=== PATIENT | male | born 1980 | race Caucasian/White ===

== ENCOUNTER 2023-11-29 11:58 | Inpatient (IN) | payer MEDICAID ==
[~2023-11-29] VITALS: Ht 165.1 cm; Wt 88.9 kg
[2023-11-29 12:06] VITALS: BP 115/70; PULSE 91; RESP 16; TEMP 97.8; O2SAT 96
[2023-11-29 13:00] VITALS: O2SAT 96
[2023-11-29 13:41] LABS: BASOPHILS # (AUTO) 0.1 K/uL (0.00-0.22); BASOPHILS % (AUTO) 0.4 % (0.0-2.0); EOSINOPHILS # (AUTO) 0.3 K/uL (0-0.4); EOSINOPHILS % (AUTO) 1.3 % (0.0-4.0); HEMATOCRIT 37.7 % (36-52); HEMOGLOBIN 12.9 g/dL (12.0-18.0); LYMPHOCYTES # (AUTO) 1.3 K/uL (2.0-11.5); LYMPHOCYTES % (AUTO) 6.6 % (20.5-51.1); MEAN CORPUSCULAR HEMOGLOBIN 33 pg (27-31); MEAN CORPUSCULAR HGB CONC 34 g/dL (33-37); MEAN CORPUSCULAR VOLUME 97.6 fL (80-94); MONOCYTES # (AUTO) 0.7 K/uL (0.8-1.0); MONOCYTES % (AUTO) 3.7 % (1.7-9.3); NEUTROPHILS # (AUTO) 16.9 K/uL (1.8-7.7); PLATELET COUNT (AUTO) 271 K/uL (140-450); RED BLOOD CELL COUNT(AUTO) 3.86 MIL/uL (4.20-6.10); RED CELL DISTRIBUTION WIDTH 14.2 % (11.6-13.7); WHITE BLOOD COUNT (AUTO) 19.2 K/uL (4.8-10.8)
[2023-11-29] MEDS: NACL 0.9% 2,000 ML IV SCH (13:46)
[2023-11-29 13:54] LABS: INR 0.94 (0.8-1.2); PROTHROMBIN TIME 9.9 secs (10.8-13.4)
[2023-11-29] MEDS ORDERED: PIPERACILLIN/TAZOBACTAM 3.375 GM VIAL IV ONE (13:54)
[2023-11-29] MEDS ORDERED: VANCOMYCIN 1,000 MG VIAL ONE (13:54)
[2023-11-29 13:55] LABS: ANION GAP 13.5 (8-16); CALCIUM 9.4 mg/dL (8.5-10.1); CREATININE 0.9 mg/dL (0.6-1.3); POTASSIUM 3.5 mmol/L (3.5-5.1)
[2023-11-29 14:00] LABS: LACTIC ACID 1.2 mmol/L (0.4-2.0)
[2023-11-29 14:01] LABS: ALANINE AMINOTRANSFERASE 133 U/L (12-78); ALBUMIN 2.3 g/dL (3.4-5.0); ALKALINE PHOSPHATASE 278 U/L (50-136); ASPARTATE AMINOTRANSFERASE 106 U/L (15-37); CREATINE KINASE, TOTAL 40 U/L (39-308); LIPASE 18 U/L (16-77); TOTAL BILIRUBIN 1.6 mg/dL (0.0-1.0); TOTAL PROTEIN, SERUM 8.9 g/dL (6.4-8.2)
[2023-11-29] MEDS: PIPERACILLIN/TAZOBACTAM 3.375 GM in DEXTROSE 5% 50 ML IV ONE (14:12)
[2023-11-29] MEDS ORDERED: CLINDAMYCIN 600 MG/4 ML VIAL ONE ×2 (14:14)
[2023-11-29] MEDS: CLINDAMYCIN 600 MG in DEXTROSE 5% 50 ML IV ONE (14:16)
[2023-11-29] MEDS: VANCOMYCIN 1,000 MG in DEXTROSE 5% 250 ML IV ONE (14:27)
[2023-11-29] MEDS ORDERED: VANCOMYCIN PER PHARMACY MC PRN (14:50)
[2023-11-29] MEDS ORDERED: ZOLPIDEM 10 MG TAB PO PRN (14:55)
[2023-11-29] MEDS ORDERED: MAG SULF 2000 MG/WATER PREMIX 50 ML IV PRN (14:55)
[2023-11-29 15:17] LABS: ALCOHOL, BLOOD < 3 mg/dL (<10)
[2023-11-29 15:20] LABS: ACETAMINOPHEN < 0.5 ug/ml (10-30); SALICYLATE < 2.8 mg/dL (2.8-20.0)
[2023-11-29 15:42] LABS: APPEARANCE,URINE CLEAR (CLEAR); BILIRUBIN,URINE 1+ (NEGATIVE); BLOOD, URINE TRACE-I (NEGATIVE); COLOR,URINE YELLOW (YELLOW); LEUKOCYTE ESTERASE ,URINE NEGATIVE (NEGATIVE); NITRITE, URINE NEGATIVE (NEGATIVE); PROTEIN,URINE 2+ (NEGATIVE); UGLUCOSE NEGATIVE (NEGATIVE)
[2023-11-29] MEDS: NACL 0.9% 1,000 ML IV SCH (15:44)
[2023-11-29 15:50] LABS: BACTERIA,URINE FEW /HPF (None Seen); ICTOTEST NEGATIVE (NEGATIVE); MUCUS,URINE None Seen /LPF (None Seen); RBC,URINE 0-5 /HPF (0-5); SQUAMOUS EPITHELIAL CELL,UR 0-3 (FEW) /LPF (0-3 (FEW)); TRICHOMONAS,URINE None Seen /HPF (None Seen); WBC,URINE 0-5 /HPF (0-5); YEAST,URINE None Seen /HPF (None Seen)
[2023-11-29 15:51] LABS: FINE GRANULAR CASTS,URINE 0-10 /LPF (None Seen)
[2023-11-29 20:36] VITALS: BP 130/66; PULSE 78; RESP 18; TEMP 98.6; O2SAT 97
[2023-11-29] MEDS ORDERED: CLINDAMYCIN 600 MG/4 ML VIAL IV SCH (21:00)
[2023-11-29] MEDS: PIPERACILLIN/TAZOBACTAM 3.375 GM in DEXTROSE 5% 50 ML IV SCH (21:29)
[2023-11-29] MEDS: PIPERACILLIN/TAZOBACTAM 3.375 GM VIAL IV ONE (21:35)
[2023-11-29] MEDS: HYDROcodone/APAP 5/325 MG 1 TAB TAB PO PRN (22:01)
[2023-11-29] MEDS: CLINDAMYCIN 600 MG/4 ML VIAL ONE (22:01)
[2023-11-29] MEDS: CLINDAMYCIN 300MG/D5W PM 50 ML IV SCH (22:25)
[2023-11-29] MEDS: VANCOMYCIN 1,000 MG in DEXTROSE 5% 250 ML IV SCH (23:39)
[2023-11-29] MEDS: VANCOMYCIN 1,000 MG VIAL ONE (23:40)
[2023-11-30 04:00] VITALS: BP 100/61; PULSE 77; RESP 18; TEMP 98.5; O2SAT 96
[2023-11-30] MEDS: CLINDAMYCIN 600 MG/4 ML VIAL ONE (05:22)
[2023-11-30 06:12] LABS: BASOPHILS # (AUTO) 0.1 K/uL (0.00-0.22); BASOPHILS % (AUTO) 0.4 % (0.0-2.0); EOSINOPHILS # (AUTO) 0.3 K/uL (0-0.4); EOSINOPHILS % (AUTO) 2.1 % (0.0-4.0); HEMATOCRIT 36.3 % (36-52); HEMOGLOBIN 12.3 g/dL (12.0-18.0); LYMPHOCYTES # (AUTO) 1.4 K/uL (2.0-11.5); LYMPHOCYTES % (AUTO) 9.2 % (20.5-51.1); MEAN CORPUSCULAR HEMOGLOBIN 33 pg (27-31); MEAN CORPUSCULAR HGB CONC 34 g/dL (33-37); MEAN CORPUSCULAR VOLUME 98.9 fL (80-94); MONOCYTES # (AUTO) 0.8 K/uL (0.8-1.0); MONOCYTES % (AUTO) 5.5 % (1.7-9.3); NEUTROPHILS # (AUTO) 12.3 K/uL (1.8-7.7); NEUTROPHILS % (AUTO) 82.8 % (42.2-75.2); PLATELET COUNT (AUTO) 261 K/uL (140-450); RED BLOOD CELL COUNT(AUTO) 3.67 MIL/uL (4.20-6.10); RED CELL DISTRIBUTION WIDTH 14.4 % (11.6-13.7); WHITE BLOOD COUNT (AUTO) 14.9 K/uL (4.8-10.8)
[2023-11-30] MEDS: PIPERACILLIN/TAZOBACTAM 3.375 GM VIAL IV ONE (06:22)
[2023-11-30 06:33] LABS: ANION GAP 11.6 (8-16); CALCIUM 8.9 mg/dL (8.5-10.1); CREATININE 0.9 mg/dL (0.6-1.3); POTASSIUM 3.6 mmol/L (3.5-5.1); TOTAL BILIRUBIN 1.2 mg/dL (0.0-1.0); TOTAL PROTEIN, SERUM 8.2 g/dL (6.4-8.2)
[2023-11-30] MEDS: VANCOMYCIN 1,000 MG VIAL ONE (07:17)
[2023-11-30 08:00] VITALS: BP 147/87; PULSE 80; RESP 18; TEMP 97.2; O2SAT 99
[2023-11-30] MEDS ORDERED: SEVOFLURANE 250 ML BTL INH ONE (10:00)
[2023-11-30] MEDS ORDERED: ePHEDrine 50 MG/ML VIAL ONE (10:00)
[2023-11-30] MEDS ORDERED: VANCOMYCIN 1,000 MG VIAL ONE (10:00)
[2023-11-30] MEDS: ACETAMINOPHEN 100 ML IV ONE (10:05)
[2023-11-30] MEDS: MIDAZOLAM 2 MG/2 ML VIAL ONE (10:07)
[2023-11-30] MEDS: PROPOFOL 200 MG/20 ML VIAL IV ONE ×2 (10:08→10:22)
[2023-11-30] MEDS: fentaNYL citrate 0.05 MG/ML VIAL ONE ×2 (10:08→10:26)
[2023-11-30] MEDS: ONDANSETRON 4 MG/2 ML VIAL ONE (10:25)
[2023-11-30] MEDS: DEXAMETHASONE 4 MG/ML VIAL ONE (10:25)
[2023-11-30] MEDS: KETOROLAC 30 MG/ML VIAL ONE (10:47)
[2023-11-30] MEDS: MORPHINE SULFATE 2 MG/ML SYR IVP PRN (11:37)
[2023-11-30 12:00] VITALS: BP 128/81; PULSE 79; RESP 17; TEMP 97.4; O2SAT 98
[2023-11-30 16:00] VITALS: BP 129/86; PULSE 76; RESP 18; TEMP 97.6; O2SAT 96
[2023-11-30 20:00] VITALS: BP 142/90; PULSE 78; RESP 20; TEMP 96.9; O2SAT 95; O2SAT 97
[2023-12-01 04:00] VITALS: BP 135/75; PULSE 76; RESP 20; TEMP 97.9; O2SAT 98
[2023-12-01 06:58] LABS: HEMATOCRIT 34.9 % (36-52); HEMOGLOBIN 12.2 g/dL (12.0-18.0); MEAN CORPUSCULAR HEMOGLOBIN 35 pg (27-31); MEAN CORPUSCULAR HGB CONC 35 g/dL (33-37); MEAN CORPUSCULAR VOLUME 99.3 fL (80-94); PLATELET COUNT (AUTO) 321 K/uL (140-450); RED BLOOD CELL COUNT(AUTO) 3.52 MIL/uL (4.20-6.10); RED CELL DISTRIBUTION WIDTH 14.5 % (11.6-13.7); WHITE BLOOD COUNT (AUTO) 14.6 K/uL (4.8-10.8)
[2023-12-01 07:18] LABS: ANION GAP 11.5 (8-16); CARBON DIOXIDE 27.4 mmol/L (21-32); POTASSIUM 3.9 mmol/L (3.5-5.1)
[2023-12-01 07:19] LABS: ALBUMIN 1.9 g/dL (3.4-5.0); CALCIUM 8.2 mg/dL (8.5-10.1); CREATININE 0.9 mg/dL (0.6-1.3); TOTAL BILIRUBIN 0.9 mg/dL (0.0-1.0)
[2023-12-01 08:00] VITALS: PULSE 68; RESP 18; O2SAT 98
[2023-12-01 08:40] LABS: LYMPHOCYTES % (MANUAL) 7 % (20-46); MONOCYTES % (MANUAL) 7 % (5-12)
[2023-12-01] MEDS: ENOXAPARIN 40 MG/0.4 ML SYR SUBQ SCH (11:59)
[2023-12-01 16:00] VITALS: BP 141/87; PULSE 71; RESP 18; TEMP 97.1; O2SAT 98
[2023-12-01 20:00] VITALS: BP 143/93; PULSE 64; RESP 18; TEMP 97.4; O2SAT 96
[2023-12-02 04:00] VITALS: BP 134/86; PULSE 69; RESP 18; TEMP 97.9; O2SAT 96
[2023-12-02 06:56] LABS: BASOPHILS # (AUTO) 0.1 K/uL (0.00-0.22); BASOPHILS % (AUTO) 0.5 % (0.0-2.0); EOSINOPHILS # (AUTO) 0.4 K/uL (0-0.4); EOSINOPHILS % (AUTO) 2.6 % (0.0-4.0); HEMATOCRIT 37.1 % (36-52); HEMOGLOBIN 12.9 g/dL (12.0-18.0); LYMPHOCYTES # (AUTO) 1.5 K/uL (2.0-11.5); LYMPHOCYTES % (AUTO) 10.4 % (20.5-51.1); MEAN CORPUSCULAR HEMOGLOBIN 34 pg (27-31); MEAN CORPUSCULAR HGB CONC 35 g/dL (33-37); MEAN CORPUSCULAR VOLUME 97.5 fL (80-94); MONOCYTES # (AUTO) 0.8 K/uL (0.8-1.0); MONOCYTES % (AUTO) 5.4 % (1.7-9.3); NEUTROPHILS # (AUTO) 11.7 K/uL (1.8-7.7); NEUTROPHILS % (AUTO) 81.1 % (42.2-75.2); PLATELET COUNT (AUTO) 309 K/uL (140-450); RED CELL DISTRIBUTION WIDTH 14.1 % (11.6-13.7); WHITE BLOOD COUNT (AUTO) 14.4 K/uL (4.8-10.8)
[2023-12-02 07:33] LABS: ALBUMIN 2.1 g/dL (3.4-5.0); ANION GAP 10.6 (8-16); CALCIUM 8.5 mg/dL (8.5-10.1); CARBON DIOXIDE 28.2 mmol/L (21-32); POTASSIUM 3.8 mmol/L (3.5-5.1); TOTAL BILIRUBIN 0.9 mg/dL (0.0-1.0); TOTAL PROTEIN, SERUM 8.5 g/dL (6.4-8.2)
[2023-12-02 08:50] VITALS: BP 138/85; PULSE 85; RESP 18; TEMP 98.6; O2SAT 98
[2023-12-02] MEDS ORDERED: THERAHONEY GEL 42.5 GM TP PRN (11:55)
[2023-12-02] MEDS: THERAHONEY GEL 42.5 GM TP SCH (14:46)
[2023-12-02 16:00] VITALS: BP 133/90; PULSE 84; RESP 18; TEMP 98.6; O2SAT 98
[2023-12-02 20:00] VITALS: BP 104/71; PULSE 82; RESP 20; TEMP 97.3; O2SAT 96
[2023-12-02] MEDS: ACETAMINOPHEN 325 MG TAB PO PRN (20:48)
[2023-12-02 21:07] VITALS: PULSE 84; RESP 18; O2SAT 97
[2023-12-03] MEDS: VANCOMYCIN 1,000 MG in DEXTROSE 5% 250 ML IV SCH (01:25)
[2023-12-03 06:38] LABS: BASOPHILS % (AUTO) 0.3 % (0.0-2.0); EOSINOPHILS # (AUTO) 0.3 K/uL (0-0.4); EOSINOPHILS % (AUTO) 1.8 % (0.0-4.0); HEMATOCRIT 37.3 % (36-52); HEMOGLOBIN 12.8 g/dL (12.0-18.0); LYMPHOCYTES # (AUTO) 1.6 K/uL (2.0-11.5); LYMPHOCYTES % (AUTO) 10.9 % (20.5-51.1); MEAN CORPUSCULAR HEMOGLOBIN 34 pg (27-31); MEAN CORPUSCULAR HGB CONC 35 g/dL (33-37); MEAN CORPUSCULAR VOLUME 97.3 fL (80-94); MONOCYTES # (AUTO) 0.7 K/uL (0.8-1.0); MONOCYTES % (AUTO) 5.1 % (1.7-9.3); NEUTROPHILS # (AUTO) 11.9 K/uL (1.8-7.7); NEUTROPHILS % (AUTO) 81.9 % (42.2-75.2); PLATELET COUNT (AUTO) 295 K/uL (140-450); RED BLOOD CELL COUNT(AUTO) 3.83 MIL/uL (4.20-6.10); RED CELL DISTRIBUTION WIDTH 14.2 % (11.6-13.7); WHITE BLOOD COUNT (AUTO) 14.5 K/uL (4.8-10.8)
[2023-12-03 06:51] LABS: ALBUMIN 2.1 g/dL (3.4-5.0); ANION GAP 8.1 (8-16); CALCIUM 8.3 mg/dL (8.5-10.1); CARBON DIOXIDE 29.8 mmol/L (21-32); CREATININE 0.9 mg/dL (0.6-1.3); POTASSIUM 3.9 mmol/L (3.5-5.1); TOTAL PROTEIN, SERUM 8.5 g/dL (6.4-8.2)
[2023-12-03 08:00] VITALS: BP 136/73; PULSE 59; RESP 19; TEMP 96.7; O2SAT 96
[2023-12-03] MEDS: LEVOFLOXACIN 750 MG/D5W PREMIX 150 ML IV SCH (13:39)
[2023-12-03 16:00] VITALS: BP 122/83; PULSE 72; RESP 18; TEMP 97.6; O2SAT 98
[2023-12-03 20:00] VITALS: BP 115/70; PULSE 75; RESP 18; TEMP 98.4; O2SAT 97
[2023-12-04 05:46] LABS: BASOPHILS # (AUTO) 0.1 K/uL (0.00-0.22); BASOPHILS % (AUTO) 0.7 % (0.0-2.0); EOSINOPHILS # (AUTO) 0.7 K/uL (0-0.4); EOSINOPHILS % (AUTO) 4.3 % (0.0-4.0); HEMOGLOBIN 12.5 g/dL (12.0-18.0); LYMPHOCYTES # (AUTO) 1.5 K/uL (2.0-11.5); LYMPHOCYTES % (AUTO) 10.1 % (20.5-51.1); MEAN CORPUSCULAR HEMOGLOBIN 34 pg (27-31); MEAN CORPUSCULAR HGB CONC 35 g/dL (33-37); MEAN CORPUSCULAR VOLUME 97.8 fL (80-94); MONOCYTES # (AUTO) 0.4 K/uL (0.8-1.0); MONOCYTES % (AUTO) 2.9 % (1.7-9.3); NEUTROPHILS # (AUTO) 12.4 K/uL (1.8-7.7); PLATELET COUNT (AUTO) 336 K/uL (140-450); RED BLOOD CELL COUNT(AUTO) 3.68 MIL/uL (4.20-6.10); RED CELL DISTRIBUTION WIDTH 14.4 % (11.6-13.7); WHITE BLOOD COUNT (AUTO) 15.1 K/uL (4.8-10.8)
[2023-12-04 05:51] LABS: ALBUMIN 2.1 g/dL (3.4-5.0); ANION GAP 10.2 (8-16); CALCIUM 8.3 mg/dL (8.5-10.1); CARBON DIOXIDE 27.7 mmol/L (21-32); CREATININE 0.9 mg/dL (0.6-1.3); POTASSIUM 3.9 mmol/L (3.5-5.1); TOTAL BILIRUBIN 0.9 mg/dL (0.0-1.0); TOTAL PROTEIN, SERUM 8.5 g/dL (6.4-8.2)
[2023-12-04 08:00] VITALS: BP 108/69; PULSE 67; PULSE 75; RESP 18; TEMP 97.4; O2SAT 97
[2023-12-04 16:00] VITALS: BP 126/78; PULSE 66; RESP 18; TEMP 97.4; O2SAT 98
[2023-12-04 20:00] VITALS: BP 127/62; PULSE 80; RESP 18; TEMP 97.6; O2SAT 97; O2SAT 98
[2023-12-05 08:00] VITALS: BP 97/66; PULSE 63; RESP 18; TEMP 96.6; O2SAT 97; O2SAT 98
[2023-12-05 10:30] LABS: BASOPHILS # (AUTO) 0.1 K/uL (0.00-0.22); BASOPHILS % (AUTO) 0.5 % (0.0-2.0); EOSINOPHILS # (AUTO) 0.2 K/uL (0-0.4); EOSINOPHILS % (AUTO) 1.5 % (0.0-4.0); HEMATOCRIT 35.2 % (36-52); HEMOGLOBIN 12.1 g/dL (12.0-18.0); LYMPHOCYTES # (AUTO) 1.3 K/uL (2.0-11.5); LYMPHOCYTES % (AUTO) 10.6 % (20.5-51.1); MEAN CORPUSCULAR HEMOGLOBIN 34 pg (27-31); MEAN CORPUSCULAR HGB CONC 34 g/dL (33-37); MEAN CORPUSCULAR VOLUME 97.6 fL (80-94); MONOCYTES # (AUTO) 0.4 K/uL (0.8-1.0); MONOCYTES % (AUTO) 3.5 % (1.7-9.3); NEUTROPHILS # (AUTO) 10.2 K/uL (1.8-7.7); NEUTROPHILS % (AUTO) 83.9 % (42.2-75.2); PLATELET COUNT (AUTO) 304 K/uL (140-450); RED BLOOD CELL COUNT(AUTO) 3.61 MIL/uL (4.20-6.10); RED CELL DISTRIBUTION WIDTH 14.1 % (11.6-13.7); WHITE BLOOD COUNT (AUTO) 12.2 K/uL (4.8-10.8)
[2023-12-05 10:52] LABS: ANION GAP 11.9 (8-16); CALCIUM 8.3 mg/dL (8.5-10.1); CARBON DIOXIDE 24.8 mmol/L (21-32); POTASSIUM 3.7 mmol/L (3.5-5.1)
[2023-12-05 16:00] VITALS: BP 131/81; PULSE 63; RESP 18; TEMP 96.9; O2SAT 97
[2023-12-05 20:00] VITALS: PULSE 70; RESP 18; O2SAT 93
[2023-12-06] VITALS: BP 111/66; PULSE 70; RESP 18; TEMP 97.4; O2SAT 93
[2023-12-06 06:07] LABS: BASOPHILS # (AUTO) 0.1 K/uL (0.00-0.22); BASOPHILS % (AUTO) 0.5 % (0.0-2.0); EOSINOPHILS # (AUTO) 0.2 K/uL (0-0.4); EOSINOPHILS % (AUTO) 1.5 % (0.0-4.0); HEMATOCRIT 35.6 % (36-52); HEMOGLOBIN 12.5 g/dL (12.0-18.0); LYMPHOCYTES # (AUTO) 1.1 K/uL (2.0-11.5); MEAN CORPUSCULAR HEMOGLOBIN 34 pg (27-31); MEAN CORPUSCULAR HGB CONC 35 g/dL (33-37); MEAN CORPUSCULAR VOLUME 97.3 fL (80-94); MONOCYTES # (AUTO) 0.5 K/uL (0.8-1.0); MONOCYTES % (AUTO) 4.5 % (1.7-9.3); NEUTROPHILS # (AUTO) 8.9 K/uL (1.8-7.7); NEUTROPHILS % (AUTO) 83.5 % (42.2-75.2); PLATELET COUNT (AUTO) 341 K/uL (140-450); RED BLOOD CELL COUNT(AUTO) 3.66 MIL/uL (4.20-6.10); RED CELL DISTRIBUTION WIDTH 13.9 % (11.6-13.7); WHITE BLOOD COUNT (AUTO) 10.6 K/uL (4.8-10.8)
[2023-12-06 06:43] LABS: CALCIUM 8.9 mg/dL (8.5-10.1); CARBON DIOXIDE 23.8 mmol/L (21-32); POTASSIUM 3.8 mmol/L (3.5-5.1)
[2023-12-06 08:00] VITALS: BP 95/59; PULSE 68; RESP 18; TEMP 98; O2SAT 100
[2023-12-06 16:00] VITALS: BP 100/64; PULSE 69; RESP 18; TEMP 97.1; O2SAT 99
[2023-12-06 20:00] VITALS: PULSE 75; RESP 18; O2SAT 95
[2023-12-06] MEDS: VANCOMYCIN 1,000 MG in DEXTROSE 5% 250 ML IV SCH (20:51)
[2023-12-07] VITALS: BP 110/67; PULSE 75; RESP 18; TEMP 98; O2SAT 95
[2023-12-07] MEDS ORDERED: ONDANSETRON 4 MG/2 ML VIAL IVP PRN (06:55)
[2023-12-07 08:00] VITALS: BP 124/69; PULSE 70; RESP 20; TEMP 99.2; O2SAT 98
[2023-12-07 16:00] VITALS: BP 106/69; PULSE 63; RESP 20; TEMP 97.4; O2SAT 98
[2023-12-07 20:00] VITALS: PULSE 67; RESP 17; O2SAT 97
[2023-12-07] MEDS: VANCOMYCIN 1,000 MG in DEXTROSE 5% 250 ML IV SCH (21:47)
[2023-12-08] VITALS: BP 105/69; PULSE 67; RESP 17; TEMP 97.7; O2SAT 97
[2023-12-08] MEDS: CLINDAMYCIN 600 MG/4 ML VIAL ONE ×2 (00:09→05:17)
[2023-12-08] MEDS: AMPICILLIN/SULBACTAM 3 GM VIAL ONE ×2 (00:09→05:17)
[2023-12-08] MEDS: CLINDAMYCIN 600 MG in DEXTROSE 5% 50 ML IV SCH (00:11)
[2023-12-08] MEDS: AMPICILLIN/SULBACTAM 3 GM in NACL 0.9% 100 ML IV SCH (00:44)
[2023-12-08 08:00] VITALS: BP 109/70; PULSE 57; PULSE 69; RESP 18; RESP 19; TEMP 96; O2SAT 98; O2SAT 99
[2023-12-08] MEDS: HYDROcodone/APAP 5/325 MG 1 TAB TAB PO PRN (14:11)
[2023-12-08 16:00] VITALS: BP 120/72; PULSE 67; RESP 18; TEMP 98; O2SAT 98
[2023-12-08 20:00] VITALS: PULSE 85; RESP 18; O2SAT 98
[2023-12-09] VITALS: BP 130/81; PULSE 85; RESP 18; TEMP 98.6; O2SAT 97
[2023-12-09 08:00] VITALS: BP 108/67; PULSE 64; PULSE 77; RESP 17; RESP 20; TEMP 97; O2SAT 98; O2SAT 99
[2023-12-09 11:08] VITALS: O2SAT 94
[2023-12-09 15:44] LABS: BASOPHILS # (AUTO) 0.2 K/uL (0.00-0.22); BASOPHILS % (AUTO) 2.5 % (0.0-2.0); EOSINOPHILS # (AUTO) 0.2 K/uL (0-0.4); EOSINOPHILS % (AUTO) 1.9 % (0.0-4.0); HEMATOCRIT 34.6 % (36-52); HEMOGLOBIN 12.1 g/dL (12.0-18.0); LYMPHOCYTES # (AUTO) 1.2 K/uL (2.0-11.5); LYMPHOCYTES % (AUTO) 13.3 % (20.5-51.1); MEAN CORPUSCULAR HEMOGLOBIN 34 pg (27-31); MEAN CORPUSCULAR HGB CONC 35 g/dL (33-37); MEAN CORPUSCULAR VOLUME 96.5 fL (80-94); MONOCYTES # (AUTO) 0.5 K/uL (0.8-1.0); MONOCYTES % (AUTO) 5.6 % (1.7-9.3); NEUTROPHILS # (AUTO) 7.2 K/uL (1.8-7.7); NEUTROPHILS % (AUTO) 76.7 % (42.2-75.2); PLATELET COUNT (AUTO) 469 K/uL (140-450); RED BLOOD CELL COUNT(AUTO) 3.58 MIL/uL (4.20-6.10); RED CELL DISTRIBUTION WIDTH 13.6 % (11.6-13.7); WHITE BLOOD COUNT (AUTO) 9.4 K/uL (4.8-10.8)
[2023-12-09 16:00] VITALS: BP 130/81; PULSE 72; RESP 18; TEMP 98; O2SAT 97
[2023-12-09] MEDS: HYDROcodone/APAP 5/325 MG 1 TAB TAB PO PRN (16:08)
[2023-12-09 16:21] LABS: ALBUMIN 2.5 g/dL (3.4-5.0); ANION GAP 14.3 (8-16); CALCIUM 8.9 mg/dL (8.5-10.1); CARBON DIOXIDE 25.7 mmol/L (21-32); CREATININE 1.1 mg/dL (0.6-1.3); TOTAL BILIRUBIN 0.5 mg/dL (0.0-1.0); TOTAL PROTEIN, SERUM 9.7 g/dL (6.4-8.2)
[2023-12-09 20:00] VITALS: PULSE 67; RESP 18; O2SAT 99
[2023-12-10] VITALS: BP 122/73; PULSE 67; RESP 18; TEMP 97.6; O2SAT 97
[2023-12-10] MEDS: THERAHONEY GEL 42.5 GM TP SCH (01:32)
[2023-12-10 05:46] LABS: BASOPHILS # (AUTO) 0.2 K/uL (0.00-0.22); BASOPHILS % (AUTO) 3.1 % (0.0-2.0); EOSINOPHILS # (AUTO) 0.2 K/uL (0-0.4); EOSINOPHILS % (AUTO) 3.6 % (0.0-4.0); HEMATOCRIT 32.1 % (36-52); HEMOGLOBIN 11.3 g/dL (12.0-18.0); LYMPHOCYTES # (AUTO) 1.1 K/uL (2.0-11.5); LYMPHOCYTES % (AUTO) 19.8 % (20.5-51.1); MEAN CORPUSCULAR HEMOGLOBIN 34 pg (27-31); MEAN CORPUSCULAR HGB CONC 35 g/dL (33-37); MONOCYTES # (AUTO) 0.4 K/uL (0.8-1.0); NEUTROPHILS # (AUTO) 3.5 K/uL (1.8-7.7); NEUTROPHILS % (AUTO) 65.5 % (42.2-75.2); PLATELET COUNT (AUTO) 414 K/uL (140-450); RED BLOOD CELL COUNT(AUTO) 3.34 MIL/uL (4.20-6.10); RED CELL DISTRIBUTION WIDTH 13.7 % (11.6-13.7); WHITE BLOOD COUNT (AUTO) 5.4 K/uL (4.8-10.8)
[2023-12-10 06:16] LABS: ALBUMIN 2.3 g/dL (3.4-5.0); ANION GAP 11.3 (8-16); CALCIUM 8.7 mg/dL (8.5-10.1); CARBON DIOXIDE 27.3 mmol/L (21-32); CREATININE 0.9 mg/dL (0.6-1.3); POTASSIUM 3.6 mmol/L (3.5-5.1); TOTAL BILIRUBIN 0.5 mg/dL (0.0-1.0)
[2023-12-10 08:00] VITALS: BP 128/82; PULSE 68; RESP 18; TEMP 98.1; O2SAT 98
[2023-12-10 16:00] VITALS: BP 130/77; PULSE 70; RESP 18; TEMP 98.3; O2SAT 97
[2023-12-10 20:00] VITALS: PULSE 64; RESP 20; O2SAT 94
[2023-12-11] MEDS: MORPHINE SULFATE 2 MG/ML SYR IVP PRN (00:14)
[2023-12-11 04:00] VITALS: BP 107/59; PULSE 66; RESP 20; TEMP 97; O2SAT 94
[2023-12-11 06:25] LABS: ALBUMIN 2.4 g/dL (3.4-5.0); ANION GAP 12.2 (8-16); CALCIUM 8.7 mg/dL (8.5-10.1); CARBON DIOXIDE 26.4 mmol/L (21-32); CREATININE 0.9 mg/dL (0.6-1.3); POTASSIUM 3.6 mmol/L (3.5-5.1); TOTAL BILIRUBIN 0.5 mg/dL (0.0-1.0); TOTAL PROTEIN, SERUM 9.2 g/dL (6.4-8.2)
[2023-12-11 06:28] LABS: BASOPHILS # (AUTO) 0.2 K/uL (0.00-0.22); BASOPHILS % (AUTO) 3.1 % (0.0-2.0); EOSINOPHILS # (AUTO) 0.2 K/uL (0-0.4); EOSINOPHILS % (AUTO) 4.2 % (0.0-4.0); HEMATOCRIT 31.2 % (36-52); LYMPHOCYTES # (AUTO) 1.2 K/uL (2.0-11.5); LYMPHOCYTES % (AUTO) 21.7 % (20.5-51.1); MEAN CORPUSCULAR HEMOGLOBIN 34 pg (27-31); MEAN CORPUSCULAR HGB CONC 35 g/dL (33-37); MEAN CORPUSCULAR VOLUME 95.9 fL (80-94); MONOCYTES # (AUTO) 0.5 K/uL (0.8-1.0); NEUTROPHILS # (AUTO) 3.6 K/uL (1.8-7.7); PLATELET COUNT (AUTO) 410 K/uL (140-450); RED BLOOD CELL COUNT(AUTO) 3.26 MIL/uL (4.20-6.10); RED CELL DISTRIBUTION WIDTH 13.6 % (11.6-13.7); WHITE BLOOD COUNT (AUTO) 5.7 K/uL (4.8-10.8)
[2023-12-11 08:00] VITALS: BP 116/74; PULSE 48; RESP 18; TEMP 97.9; O2SAT 94
[2023-12-11 08:40] VITALS: PULSE 68; RESP 19; O2SAT 99
[2023-12-11 16:00] VITALS: BP 110/52; PULSE 52; RESP 18; TEMP 97.5; O2SAT 94
[2023-12-11 20:00] VITALS: BP 103/60; PULSE 65; RESP 18; TEMP 98.4; O2SAT 93
[2023-12-12 04:00] VITALS: BP 113/74; PULSE 59; RESP 16; TEMP 97; O2SAT 94
[2023-12-12 08:00] VITALS: BP 121/65; PULSE 58; RESP 18; TEMP 97.7; O2SAT 96
[2023-12-12 08:58] VITALS: PULSE 68; RESP 19; O2SAT 99
[2023-12-12 15:02] LABS: BASOPHILS % (AUTO) 0.8 % (0.0-2.0); EOSINOPHILS # (AUTO) 0.2 K/uL (0-0.4); EOSINOPHILS % (AUTO) 3.9 % (0.0-4.0); HEMATOCRIT 32.7 % (36-52); HEMOGLOBIN 11.5 g/dL (12.0-18.0); LYMPHOCYTES # (AUTO) 1.4 K/uL (2.0-11.5); LYMPHOCYTES % (AUTO) 23.3 % (20.5-51.1); MEAN CORPUSCULAR HEMOGLOBIN 34 pg (27-31); MEAN CORPUSCULAR HGB CONC 35 g/dL (33-37); MEAN CORPUSCULAR VOLUME 95.8 fL (80-94); MONOCYTES # (AUTO) 0.5 K/uL (0.8-1.0); MONOCYTES % (AUTO) 7.9 % (1.7-9.3); NEUTROPHILS # (AUTO) 3.8 K/uL (1.8-7.7); NEUTROPHILS % (AUTO) 64.1 % (42.2-75.2); PLATELET COUNT (AUTO) 370 K/uL (140-450); RED BLOOD CELL COUNT(AUTO) 3.42 MIL/uL (4.20-6.10); RED CELL DISTRIBUTION WIDTH 13.6 % (11.6-13.7); WHITE BLOOD COUNT (AUTO) 5.9 K/uL (4.8-10.8)
[2023-12-12 15:24] LABS: ALBUMIN 2.5 g/dL (3.4-5.0); ANION GAP 9.8 (8-16); CALCIUM 8.4 mg/dL (8.5-10.1); CARBON DIOXIDE 28.7 mmol/L (21-32); CREATININE 0.9 mg/dL (0.6-1.3); POTASSIUM 3.5 mmol/L (3.5-5.1); TOTAL BILIRUBIN 0.4 mg/dL (0.0-1.0); TOTAL PROTEIN, SERUM 9.2 g/dL (6.4-8.2)
[2023-12-12 16:00] VITALS: BP 136/80; PULSE 62; RESP 18; TEMP 97.8; O2SAT 98
[2023-12-12 23:48] VITALS: BP 125/81; PULSE 61; RESP 18; TEMP 97.2; O2SAT 94
[2023-12-13 04:25] VITALS: PULSE 61; RESP 18; O2SAT 94
[2023-12-13 08:00] VITALS: BP 105/56; PULSE 58; RESP 18; TEMP 97.8; O2SAT 96
[2023-12-13 08:03] VITALS: PULSE 68; RESP 19; O2SAT 98
[2023-12-13 15:18] LABS: BASOPHILS # (AUTO) 0.2 K/uL (0.00-0.22); BASOPHILS % (AUTO) 3.4 % (0.0-2.0); EOSINOPHILS # (AUTO) 0.3 K/uL (0-0.4); EOSINOPHILS % (AUTO) 5.1 % (0.0-4.0); HEMATOCRIT 33.3 % (36-52); HEMOGLOBIN 11.6 g/dL (12.0-18.0); LYMPHOCYTES # (AUTO) 1.2 K/uL (2.0-11.5); LYMPHOCYTES % (AUTO) 22.3 % (20.5-51.1); MEAN CORPUSCULAR HEMOGLOBIN 33 pg (27-31); MEAN CORPUSCULAR HGB CONC 35 g/dL (33-37); MEAN CORPUSCULAR VOLUME 95.6 fL (80-94); MONOCYTES # (AUTO) 0.4 K/uL (0.8-1.0); NEUTROPHILS # (AUTO) 3.4 K/uL (1.8-7.7); NEUTROPHILS % (AUTO) 61.2 % (42.2-75.2); PLATELET COUNT (AUTO) 328 K/uL (140-450); RED BLOOD CELL COUNT(AUTO) 3.49 MIL/uL (4.20-6.10); RED CELL DISTRIBUTION WIDTH 13.4 % (11.6-13.7); WHITE BLOOD COUNT (AUTO) 5.5 K/uL (4.8-10.8)
[2023-12-13 15:50] LABS: ALBUMIN 2.6 g/dL (3.4-5.0); ANION GAP 10.6 (8-16); CALCIUM 8.4 mg/dL (8.5-10.1); CARBON DIOXIDE 27.9 mmol/L (21-32); CREATININE 0.9 mg/dL (0.6-1.3); POTASSIUM 3.5 mmol/L (3.5-5.1); TOTAL BILIRUBIN 0.5 mg/dL (0.0-1.0); TOTAL PROTEIN, SERUM 9.2 g/dL (6.4-8.2)
[2023-12-13 16:00] VITALS: BP 116/67; PULSE 58; RESP 18; TEMP 97.5; O2SAT 96
[2023-12-13 20:00] VITALS: BP 125/66; PULSE 70; RESP 18; TEMP 98; O2SAT 96
[2023-12-14 03:16] VITALS: BP 118/60; PULSE 65; RESP 18; TEMP 98.6; O2SAT 96
[2023-12-14 03:52] LABS: BASOPHILS # (AUTO) 0.2 K/uL (0.00-0.22); BASOPHILS % (AUTO) 3.7 % (0.0-2.0); EOSINOPHILS # (AUTO) 0.3 K/uL (0-0.4); EOSINOPHILS % (AUTO) 6.4 % (0.0-4.0); HEMATOCRIT 31.2 % (36-52); LYMPHOCYTES # (AUTO) 1.8 K/uL (2.0-11.5); LYMPHOCYTES % (AUTO) 34.4 % (20.5-51.1); MEAN CORPUSCULAR HEMOGLOBIN 34 pg (27-31); MEAN CORPUSCULAR HGB CONC 35 g/dL (33-37); MEAN CORPUSCULAR VOLUME 95.5 fL (80-94); MONOCYTES # (AUTO) 0.5 K/uL (0.8-1.0); MONOCYTES % (AUTO) 9.1 % (1.7-9.3); NEUTROPHILS # (AUTO) 2.4 K/uL (1.8-7.7); NEUTROPHILS % (AUTO) 46.4 % (42.2-75.2); PLATELET COUNT (AUTO) 323 K/uL (140-450); RED BLOOD CELL COUNT(AUTO) 3.27 MIL/uL (4.20-6.10); RED CELL DISTRIBUTION WIDTH 13.7 % (11.6-13.7); WHITE BLOOD COUNT (AUTO) 5.1 K/uL (4.8-10.8)
[2023-12-14 04:08] LABS: INR 1.03 (0.8-1.2); PARTIAL THROMBOPLASTIN TIME 39.2 secs (22-35.6); PROTHROMBIN TIME 10.8 secs (10.8-13.4)
[2023-12-14 04:13] LABS: ALBUMIN 2.6 g/dL (3.4-5.0); ANION GAP 12.1 (8-16); CALCIUM 8.6 mg/dL (8.5-10.1); CARBON DIOXIDE 26.4 mmol/L (21-32); CREATININE 0.9 mg/dL (0.6-1.3); POTASSIUM 3.5 mmol/L (3.5-5.1); TOTAL BILIRUBIN 0.4 mg/dL (0.0-1.0)
[2023-12-14] MEDS: CLINDAMYCIN 600MG/D5W PM 50 ML IV SCH (06:00)
[2023-12-14] MEDS: MIDAZOLAM 2 MG/2 ML VIAL ONE (07:45)
[2023-12-14] MEDS: ONDANSETRON 4 MG/2 ML VIAL ONE (07:46)
[2023-12-14] MEDS: fentaNYL citrate 0.05 MG/ML VIAL ONE (07:46)
[2023-12-14] MEDS: PROPOFOL 200 MG/20 ML VIAL IV ONE (07:46)
[2023-12-14] MEDS: METOCLOPRAMIDE 10 MG/2 ML INJ VIAL ONE (07:47)
[2023-12-14 08:00] VITALS: BP 123/50; PULSE 66; RESP 19; TEMP 97.1; O2SAT 96
[2023-12-14] MEDS: LIDOCAINE MPF 2% 100 MG/5 ML VIAL INJ ONE (08:02)
[2023-12-14] MEDS: KETOROLAC 30 MG/ML VIAL ONE (08:13)
[2023-12-14] MEDS: ePHEDrine 50 MG/ML VIAL ONE (08:13)
[2023-12-14] MEDS ORDERED: MEPERIDINE 25 MG/ML SYR IVP PRN (08:35)
[2023-12-14] MEDS: NACL 0.9% 1,000 ML IV SCH (08:35)
[2023-12-14] MEDS ORDERED: diphenhydrAMINE 50 MG/ML VIAL IVP PRN (08:35)
[2023-12-14] MEDS ORDERED: ONDANSETRON 4 MG/2 ML VIAL IVP PRN (08:35)
[2023-12-14] MEDS: HYDROmorphone 1 MG/ML AMP IVP PRN (09:00)
[2023-12-14] MEDS: HYDROmorphone PFS 2 MG/ML SYR ONE (09:01)
[2023-12-14 11:19] VITALS: PULSE 65; RESP 19; O2SAT 99
[2023-12-14 16:00] VITALS: BP 132/63; PULSE 63; RESP 20; TEMP 98.4; O2SAT 96
[2023-12-14 20:00] VITALS: PULSE 76; RESP 18; O2SAT 97
[2023-12-15 04:00] VITALS: BP 136/90; PULSE 69; RESP 20; TEMP 98.3; O2SAT 97
[2023-12-15 05:38] LABS: BASOPHILS # (AUTO) 0.2 K/uL (0.00-0.22); BASOPHILS % (AUTO) 3.3 % (0.0-2.0); EOSINOPHILS # (AUTO) 0.3 K/uL (0-0.4); EOSINOPHILS % (AUTO) 7.1 % (0.0-4.0); HEMATOCRIT 31.3 % (36-52); HEMOGLOBIN 10.9 g/dL (12.0-18.0); LYMPHOCYTES # (AUTO) 1.3 K/uL (2.0-11.5); LYMPHOCYTES % (AUTO) 27.1 % (20.5-51.1); MEAN CORPUSCULAR HEMOGLOBIN 34 pg (27-31); MEAN CORPUSCULAR HGB CONC 35 g/dL (33-37); MEAN CORPUSCULAR VOLUME 96.3 fL (80-94); MONOCYTES # (AUTO) 0.3 K/uL (0.8-1.0); MONOCYTES % (AUTO) 7.3 % (1.7-9.3); NEUTROPHILS # (AUTO) 2.6 K/uL (1.8-7.7); NEUTROPHILS % (AUTO) 55.2 % (42.2-75.2); PLATELET COUNT (AUTO) 278 K/uL (140-450); RED BLOOD CELL COUNT(AUTO) 3.25 MIL/uL (4.20-6.10); RED CELL DISTRIBUTION WIDTH 13.5 % (11.6-13.7); WHITE BLOOD COUNT (AUTO) 4.8 K/uL (4.8-10.8)
[2023-12-15 06:29] LABS: ALBUMIN 2.5 g/dL (3.4-5.0); ANION GAP 12.6 (8-16); CALCIUM 8.3 mg/dL (8.5-10.1); CARBON DIOXIDE 26.3 mmol/L (21-32); CREATININE 0.8 mg/dL (0.6-1.3); POTASSIUM 3.9 mmol/L (3.5-5.1); TOTAL BILIRUBIN 0.4 mg/dL (0.0-1.0); TOTAL PROTEIN, SERUM 8.6 g/dL (6.4-8.2)
[2023-12-15 08:00] VITALS: BP 119/77; PULSE 57; RESP 20; TEMP 97.8; O2SAT 100
[2023-12-15 16:00] VITALS: BP 111/72; PULSE 57; RESP 20; TEMP 98; O2SAT 99
[2023-12-15 20:00] VITALS: BP_SYST 111; BP_SYST 150; BP_DIAS 150; BP_DIAS 96; PULSE 57; PULSE 62; PULSE 67; RESP 20; TEMP 98; TEMP 98.6; O2SAT 97; O2SAT 99
[2023-12-16 04:00] VITALS: BP 108/72; PULSE 66; RESP 18; TEMP 97.8; O2SAT 97
[2023-12-16 05:54] LABS: BASOPHILS # (AUTO) 0.1 K/uL (0.00-0.22); BASOPHILS % (AUTO) 2.7 % (0.0-2.0); EOSINOPHILS # (AUTO) 0.4 K/uL (0-0.4); HEMATOCRIT 28.2 % (36-52); LYMPHOCYTES # (AUTO) 1.5 K/uL (2.0-11.5); LYMPHOCYTES % (AUTO) 31.4 % (20.5-51.1); MEAN CORPUSCULAR HEMOGLOBIN 34 pg (27-31); MEAN CORPUSCULAR HGB CONC 35 g/dL (33-37); MEAN CORPUSCULAR VOLUME 95.1 fL (80-94); MONOCYTES # (AUTO) 0.4 K/uL (0.8-1.0); MONOCYTES % (AUTO) 8.4 % (1.7-9.3); NEUTROPHILS # (AUTO) 2.3 K/uL (1.8-7.7); NEUTROPHILS % (AUTO) 49.5 % (42.2-75.2); PLATELET COUNT (AUTO) 253 K/uL (140-450); RED BLOOD CELL COUNT(AUTO) 2.97 MIL/uL (4.20-6.10); RED CELL DISTRIBUTION WIDTH 13.6 % (11.6-13.7); WHITE BLOOD COUNT (AUTO) 4.7 K/uL (4.8-10.8)
[2023-12-16 06:11] LABS: ALBUMIN 2.5 g/dL (3.4-5.0); ANION GAP 9.1 (8-16); CALCIUM 8.4 mg/dL (8.5-10.1); CARBON DIOXIDE 28.4 mmol/L (21-32); CREATININE 0.8 mg/dL (0.6-1.3); POTASSIUM 3.5 mmol/L (3.5-5.1); TOTAL BILIRUBIN 0.5 mg/dL (0.0-1.0); TOTAL PROTEIN, SERUM 8.5 g/dL (6.4-8.2)
[2023-12-16 08:00] VITALS: BP 135/78; PULSE 59; RESP 18; RESP 20; TEMP 96; O2SAT 99
[2023-12-16] MEDS ORDERED: GAUZE TP PRN (14:35)
[2023-12-16] MEDS ORDERED: THERAHONEY GEL 42.5 GM TP PRN (15:05)
[2023-12-16] MEDS: GAUZE TP SCH (15:09)
[2023-12-16 16:00] VITALS: BP 138/78; PULSE 57; RESP 18; TEMP 96.9; O2SAT 98
[2023-12-16] MEDS: AMPICILLIN/SULBACTAM 3 GM in NACL 0.9% 100 ML IV SCH (17:51)
[2023-12-16 20:00] VITALS: PULSE 68; RESP 20; O2SAT 98
[2023-12-17 04:00] VITALS: BP 99/60; PULSE 65; RESP 18; TEMP 98.6; O2SAT 98
[2023-12-17 05:27] LABS: BASOPHILS # (AUTO) 0.1 K/uL (0.00-0.22); BASOPHILS % (AUTO) 2.2 % (0.0-2.0); EOSINOPHILS # (AUTO) 0.5 K/uL (0-0.4); EOSINOPHILS % (AUTO) 8.5 % (0.0-4.0); HEMATOCRIT 24.7 % (36-52); HEMOGLOBIN 8.6 g/dL (12.0-18.0); LYMPHOCYTES # (AUTO) 1.8 K/uL (2.0-11.5); LYMPHOCYTES % (AUTO) 33.2 % (20.5-51.1); MEAN CORPUSCULAR HEMOGLOBIN 33 pg (27-31); MEAN CORPUSCULAR HGB CONC 35 g/dL (33-37); MEAN CORPUSCULAR VOLUME 95.3 fL (80-94); MONOCYTES # (AUTO) 0.4 K/uL (0.8-1.0); MONOCYTES % (AUTO) 7.8 % (1.7-9.3); NEUTROPHILS # (AUTO) 2.6 K/uL (1.8-7.7); NEUTROPHILS % (AUTO) 48.3 % (42.2-75.2); PLATELET COUNT (AUTO) 224 K/uL (140-450); RED BLOOD CELL COUNT(AUTO) 2.59 MIL/uL (4.20-6.10); RED CELL DISTRIBUTION WIDTH 13.5 % (11.6-13.7); WHITE BLOOD COUNT (AUTO) 5.5 K/uL (4.8-10.8)
[2023-12-17 05:56] LABS: ALBUMIN 2.5 g/dL (3.4-5.0); ANION GAP 8.2 (8-16); CALCIUM 8.3 mg/dL (8.5-10.1); CARBON DIOXIDE 29.3 mmol/L (21-32); CREATININE 0.9 mg/dL (0.6-1.3); POTASSIUM 3.5 mmol/L (3.5-5.1); TOTAL BILIRUBIN 0.4 mg/dL (0.0-1.0); TOTAL PROTEIN, SERUM 8.1 g/dL (6.4-8.2)
[2023-12-17 08:00] VITALS: BP 103/67; PULSE 59; PULSE 68; RESP 18; RESP 20; TEMP 98.8; O2SAT 99
[2023-12-17] MEDS ORDERED: ENOXAPARIN 40 MG/0.4 ML SYR SUBQ SCH (09:00)
[2023-12-17] MEDS: THERAHONEY GEL 42.5 GM TP SCH (17:22)
[2023-12-17 20:00] VITALS: BP 127/65; PULSE 68; RESP 18; RESP 20; TEMP 98.5; O2SAT 96; O2SAT 97
[2023-12-18 03:55] VITALS: TEMP 98.5
[2023-12-18 04:00] VITALS: BP 121/60; PULSE 66; RESP 18; TEMP 98.7; O2SAT 96
[2023-12-18 05:12] LABS: BASOPHILS # (AUTO) 0.1 K/uL (0.00-0.22); EOSINOPHILS # (AUTO) 0.4 K/uL (0-0.4); EOSINOPHILS % (AUTO) 7.3 % (0.0-4.0); HEMATOCRIT 21.2 % (36-52); HEMOGLOBIN 7.6 g/dL (12.0-18.0); LYMPHOCYTES # (AUTO) 1.5 K/uL (2.0-11.5); LYMPHOCYTES % (AUTO) 30.7 % (20.5-51.1); MEAN CORPUSCULAR HEMOGLOBIN 34 pg (27-31); MEAN CORPUSCULAR HGB CONC 36 g/dL (33-37); MEAN CORPUSCULAR VOLUME 94.5 fL (80-94); MONOCYTES # (AUTO) 0.3 K/uL (0.8-1.0); MONOCYTES % (AUTO) 6.2 % (1.7-9.3); NEUTROPHILS # (AUTO) 2.6 K/uL (1.8-7.7); NEUTROPHILS % (AUTO) 53.8 % (42.2-75.2); PLATELET COUNT (AUTO) 214 K/uL (140-450); RED BLOOD CELL COUNT(AUTO) 2.24 MIL/uL (4.20-6.10); RED CELL DISTRIBUTION WIDTH 13.4 % (11.6-13.7); WHITE BLOOD COUNT (AUTO) 4.8 K/uL (4.8-10.8)
[2023-12-18 05:49] LABS: ALBUMIN 2.5 g/dL (3.4-5.0); ANION GAP 11.5 (8-16); CALCIUM 8.3 mg/dL (8.5-10.1); CARBON DIOXIDE 25.9 mmol/L (21-32); CREATININE 0.9 mg/dL (0.6-1.3); POTASSIUM 3.4 mmol/L (3.5-5.1); TOTAL BILIRUBIN 0.4 mg/dL (0.0-1.0); TOTAL PROTEIN, SERUM 8.1 g/dL (6.4-8.2)
[2023-12-18 08:00] VITALS: PULSE 68; RESP 18; O2SAT 98
[2023-12-18] MEDS: POTASSIUM CHLORIDE 10 MEQ TABER PO PRN (15:47)
[2023-12-18 20:00] VITALS: BP 127/83; PULSE 70; RESP 18; TEMP 97.6; O2SAT 97
[2023-12-19 04:00] VITALS: BP 120/60; PULSE 68; RESP 18; TEMP 98.6; O2SAT 98
[2023-12-19 08:00] VITALS: BP 107/61; PULSE 66; PULSE 68; RESP 18; TEMP 98.1; TEMP 98.6; O2SAT 99
[2023-12-19 12:25] LABS: BASOPHILS # (AUTO) 0.1 K/uL (0.00-0.22); BASOPHILS % (AUTO) 2.1 % (0.0-2.0); EOSINOPHILS # (AUTO) 0.4 K/uL (0-0.4); EOSINOPHILS % (AUTO) 7.2 % (0.0-4.0); HEMATOCRIT 21.5 % (36-52); HEMOGLOBIN 7.5 g/dL (12.0-18.0); LYMPHOCYTES # (AUTO) 1.5 K/uL (2.0-11.5); LYMPHOCYTES % (AUTO) 27.9 % (20.5-51.1); MEAN CORPUSCULAR HEMOGLOBIN 33 pg (27-31); MEAN CORPUSCULAR HGB CONC 35 g/dL (33-37); MEAN CORPUSCULAR VOLUME 95.5 fL (80-94); MONOCYTES # (AUTO) 0.4 K/uL (0.8-1.0); MONOCYTES % (AUTO) 7.4 % (1.7-9.3); NEUTROPHILS # (AUTO) 2.9 K/uL (1.8-7.7); NEUTROPHILS % (AUTO) 55.4 % (42.2-75.2); PLATELET COUNT (AUTO) 225 K/uL (140-450); RED BLOOD CELL COUNT(AUTO) 2.25 MIL/uL (4.20-6.10); RED CELL DISTRIBUTION WIDTH 13.6 % (11.6-13.7); WHITE BLOOD COUNT (AUTO) 5.3 K/uL (4.8-10.8)
[2023-12-19] MEDS ORDERED: AMOX-999 PO (14:04)
[2023-12-19] MEDS ORDERED: ACET-9525 PO (14:04)
[2023-12-19] MEDS ORDERED: ASPI-1822 PO (14:19)
[2023-12-19] MEDS ORDERED: PANT40EC PO (14:20)
[2023-12-19 16:00] VITALS: BP 107/61; PULSE 69; RESP 18; TEMP 97.9; O2SAT 96
[2023-12-19 16:29] LABS: ALBUMIN 2.7 g/dL (3.4-5.0); ANION GAP 12.2 (8-16); CALCIUM 8.4 mg/dL (8.5-10.1); CARBON DIOXIDE 27.5 mmol/L (21-32); CREATININE 0.8 mg/dL (0.6-1.3); POTASSIUM 3.7 mmol/L (3.5-5.1); TOTAL BILIRUBIN 0.3 mg/dL (0.0-1.0); TOTAL PROTEIN, SERUM 8.4 g/dL (6.4-8.2)
[2023-12-19 20:00] VITALS: BP 140/67; PULSE 68; PULSE 74; RESP 18; TEMP 97.5; TEMP 98.6; O2SAT 99
[2023-12-19 20:03] VITALS: BP 140/90; PULSE 71; RESP 18; TEMP 97.5
[2025-12-14] MEDS ORDERED: SEVOFLURANE 250 ML BTL INH ONE (07:45)
[2025-12-14] MEDS ORDERED: GLYCOPYRROLATE 0.2 MG/ML VIAL ONE (07:45)
== END 2023-12-19 20:50 | disposition home or self-care (01) | DRG 710 ==
LOC: MED 11:58 → MTU 14:55
PROVIDERS: ADMIT Family Medicine; ATTEND Family Medicine
PROC: 0Y9J0ZZ Drainage of Left Lower Leg, Open Approach (ICD-10-PCS; 2023-11-30)
PROC: 0KBT0ZZ Excision of Left Lower Leg Muscle, Open Approach (ICD-10-PCS; principal; 2023-11-30 10:00)
PROC: 0KBT0ZZ Excision of Left Lower Leg Muscle, Open Approach (ICD-10-PCS; 2023-12-14)
DX: A41.9 Sepsis, unspecified organism (principal); M72.6 Necrotizing fasciitis; E43 Unspecified severe protein-calorie malnutrition; E22.2 Syndrome of inappropriate secretion of antidiuretic hormone; J18.9 Pneumonia, unspecified organism; L03.116 Cellulitis of left lower limb; R74.01 Elevation of levels of liver transaminase levels; E80.6 Other disorders of bilirubin metabolism; R79.89 Other specified abnormal findings of blood chemistry; Z68.32 Body mass index [BMI] 32.0-32.9, adult
CPT/HCPCS: 36415; 71045; 73590; 73700; 76705; 80048; 80053; 80076; 80202; 81001; 82550; 82948; 83605; 83690; 83880; 84484; 85025; 85610; 85730; 86140; 86886; 86900; 86901; 87040; 87070; 87075; 87081; 87086; 87186; 87205; 88304; 93005; 96365; 96368; 99291; G0480; G0482; J0295; J1100; J1170; J1650; J1885; J1956; J2001; J2250; J2270; J2405; J2543; J2704; J2765; J3010; J3370; J3490; J7060; Q0092; Q9967